=== PATIENT | female | born 1935 | race Caucasian/White ===

== ENCOUNTER 2022-12-25 04:07 | Emergency (ER) | payer MEDICARE, SELFPAY ==
[2022-12-25 04:19] VITALS: BP 147/85; PULSE 49; RESP 16; TEMP 36.9; O2SAT 98
--- NOTE | 2022-12-25 04:28 | ED.GENADUL1 ---
HPI - General Adult General Chief complaint: Urogenital-Female Stated complaint: STOMACH PAIN Time Seen by Provider: 12/25/22 04:28 Source: family Mode of arrival: walk-in Limitations: altered mental status History of Present Illness HPI narrative: Patient brought in by spouse with a complaint of hematuria. States the patient's been having urinary frequency and some hematuria. states patient has a history of dementia she's been more aggressive, Angry, and Not be sleeping. Patient states nothing hurts. Denies any trauma. He has no previous history of hematuria. She does not take any blood thinners. Patient has not had any fever, upper respiratory infection symptoms, or cough. She has not had any Nausea,vomiting,. spouse states the patient gets up in the middle of the night 3-4 times and doesn't know she is waiting too long before she goes but sometimes she is not making a to the bathroom and she soils the floor. Spouse also states she started having diarrhea.He also states that in the last 2 weeks they lowered her Seroquel and since then she's been having more angry spells.The patient sees the neurologist and been involved as an outpatient. Related Data Home Medications Medication Instructions Recorded Confirmed levothyroxine 75 mcg tablet mcg 12/25/22 metoprolol succinate 25 mg mg PO 12/25/22 tablet,extended release 24 hr quetiapine 50 mg tablet mg 12/25/22 Previous Rx's Medication Instructions Recorded metronidazole 500 mg tablet 500 mg PO TID #30 tabs 12/25/22 Allergies Allergy/AdvReac Type Severity Reaction Status Date / Time No Known Drug Allergies Allergy Verified 12/25/22 04:45 Review of Systems ROS Status of ROS 10 or more systems reviewed and unremarkable except as noted in history and below Exam Narrative Exam Narrative: Nurses notes and vital signs reviewed and patient is not hypoxic. General: Nontoxic, Well-appearing and in no apparent distress. Skin: Warm, dry, no pallor noted. No Rash Head: Normocephalic, atraumatic. Neck: Supple, non-tender. Eye: Pupils are equal, round and EOMI. No scleral icterus. Ears, Nose, Mouth, and Throat: TM clear, no posterior oropharynx erythema or nasal mucosal hypertrophy, uvula is mid-line Oral mucosa is moist Cardiovascular: Regular Rate and Rhythm without murmur, gallop or rub. Respiratory: No accessory muscle use or respiratory distress. Lungs are clear to auscultation, no wheezing, rales or rhonchi Chest Wall: no tenderness Back: No midline thoracic or lumbar vertebral tenderness. No CVA tenderness Musculoskeletal: normal ROM, no calf or popliteal tenderness, no lower extremity edema/swelling GI: Abdomen is soft, non-distended. Normal bowel sounds. No masses appreciated. moderate llq tenderness to palpation. No rebound, guarding, or rigidity noted. Neurological: A&O x2, Dementia, No cranial nerve dysfunction observed. No truncal ataxia. Moves all extremities. Ambulates without any ataxia. Psychiatric: Cooperative Constitutional Vital Signs, click to edit/add: Last Vital Signs Temp 98.5 F 12/25/22 04:19 Pulse 49 L 12/25/22 04:19 Resp 16 12/25/22 04:19 BP 147/85 H 12/25/22 04:19 Pulse Ox 98 12/25/22 04:19 O2 Del Method Room Air 12/25/22 04:19 Course Vital Signs Vital signs: Vital Signs Temperature 98.5 F 12/25/22 04:19 Pulse Rate 49 L 12/25/22 04:19 Respiratory Rate 16 12/25/22 04:19 Blood Pressure 147/85 H 12/25/22 04:19 Pulse Oximetry 98 12/25/22 04:19 Oxygen Delivery Method Room Air 12/25/22 04:19 Temperature 98.5 F 12/25/22 04:19 Pulse Rate 49 L 12/25/22 04:19 Respiratory Rate 16 12/25/22 04:19 Blood Pressure 147/85 H 12/25/22 04:19 Pulse Oximetry 98 12/25/22 04:19 Oxygen Delivery Method Room Air 12/25/22 04:19 Medical Decision Making MDM Narrative Medical decision making narrative: Patient is given 10 mg of Zyprexa by mouth. lab studies were ordered. Patient has hematuria. She started complaining of abdominal pain. She's had diarrhea while she's been in the emergency department. Patient improved with Zyprexa. Patient's mentation and aggressiveness improved with Zyprexa. She was smiling, cooperative. All results were discussed with patient and spouse. Patient will be started on Flagyl. She is to follow up with primary care doctor and neurologist to discuss this visit and Seroquel. At this time the patient is without objective evidence of an acute process requiring hospitalization or inpatient management. The patient has remained hemodynamically stable. No additional indication for emergent studies at this time. I answered all questions. Discussed discharge instructions including standard anticipatory guidance and what should prompt a return to the emergency department, including if they get worse are not getting better or develops any new or concerning symptoms. I've given them specific time frame in which to follow-up, and who to follow-up with. The patient demonstrates understanding. Patient is nontoxic and stable for discharge with outpatient follow-up. This note was created with the assistance of a speech recognition program. Although the intention is to generate documents that actually reflects the content of the visit, no guarantees can be provided that every mistake has been identified and corrected by editing. Lab Data Lab results reviewed: Yes I reviewed the patient's lab results Labs: Lab Results 12/25/22 12/25/22 Range/Units 05:18 05:57 WBC 7.6 (4.0-11.0) 10^3/uL RBC 4.00 L (4.20-5.40) 10^6/uL Hgb 12.3 (12.0-16.0) g/dL Hct 37.6 (36.0-48.0) % MCV 94.0 (81.0-99.0) fL MCH 30.8 (26.7-34.0) pg MCHC 32.7 (29.9-35.2) g/dL RDW 12.9 (11.0-15.0) % Plt Count 266 (150-450) 10^3/uL MPV 9.5 (9.5-13.5) fL Neut % (Auto) 63.7 (43.0-75.0) % Lymph % (Auto) 18.1 L (20.5-60.0) % [place] % (Auto) 11.9 (1.7-12.0) % Eos % (Auto) 3.3 (0.9-7.0) % Baso % (Auto) 1.2 (0.2-2.0) % Neut # (Auto) 4.9 (1.4-6.5) 10^3/uL Lymph # (Auto) 1.4 (1.2-3.8) 10^3/uL [place] # (Auto) 0.9 H (0.3-0.8) 10^3/uL Eos # (Auto) 0.3 (0.0-0.7) 10^3/uL Baso # (Auto) 0.1 (0.0-0.1) 10^3/uL Abs Immat Gran (auto) 0.14 H (0.00-0.03) 10^3/uL Imm/Tot Granulo (auto) 1.8 H (0.0-0.5) % Sodium 140 (136-145) mmol/L Potassium 4.1 (3.5-5.1) mmol/L Chloride 104 (98-107) mmol/L Carbon Dioxide 27.6 (21.0-32.0) mmol/L Anion Gap 12.5 BUN 9.0 (7.0-18.0) mg/dL Creatinine 0.96 (0.55-1.02) mg/dL Est GFR ( Amer) >60 (>=60) Est GFR (Non-Af Amer) 55 L (>=60) BUN/Creatinine Ratio 9.4 Glucose 128 H (74-106) mg/dL Calcium 8.3 L (8.5-10.1) mg/dL Total Bilirubin 0.4 (0.2-1.0) mg/dL AST 6 L (15-37) U/L ALT 30 (14-59) U/L Alkaline Phosphatase 80 (46-116) U/L Total Protein 6.8 (6.4-8.2) g/dL Albumin 3.1 L (3.4-5.0) g/dL Globulin 3.7 g/dL Albumin/Globulin Ratio 0.8 Urine Color Lt. yellow (YELLOW) Urine Clarity Clear (CLEAR) Urine pH 6.5 (5.0-9.0) Ur Specific [place] 1.010 (1.005-1.025) Urine Protein Negative (NEG/TRACE) mg/dL Urine Glucose (UA) Negative (NEGATIVE) mg/dL Urine Ketones Negative (NEGATIVE) mg/dL Urine Occult Blood Trace-i (NEGATIVE) Urine Nitrite Negative (NEGATIVE) Urine Bilirubin Negative (NEGATIVE) Urine Urobilinogen 1.0 (0.2-1.0) EU/dL Ur Leukocyte Esterase Negative (NEGATIVE) Discharge Plan Discharge Chief Complaint: Urogenital-Female Clinical Impression: Dementia, Acute proctitis, Diarrhea Patient Disposition: Home, Self-Care Time of Disposition Decision: 07:10 Condition: Good Mode of Transportation: Private Vehicle Prescriptions / Home Meds: New metronidazole 500 mg tablet 500 mg PO TID Qty: 30 0RF No Action levothyroxine 75 mcg tablet metoprolol succinate 25 mg tablet extended release 24 hr PO quetiapine 50 mg tablet Instructions: Proctitis (ED), Dementia (ED), Acute Diarrhea (ED) Additional Instructions: Continue the full dose of Seroquel as prescribed by your doctors. Stand Alone Forms: Portal Instructions Referrals: Homer Arnold DO [Primary Care Provider] - 1 week
[2022-12-25 05:26] LABS: Basophils Absolute Auto 0.1 10^3/uL (0.0-0.1); Basophils Percent Auto 1.2 % (0.2-2.0); Eosinophils Absolute Auto 0.3 10^3/uL (0.0-0.7); Eosinophils Percent Auto 3.3 % (0.9-7.0); Hematocrit 37.6 % (36.0-48.0); Hemoglobin 12.3 g/dL (12.0-16.0); Immature Granulocytes Abs Auto 0.14 10^3/uL (0.00-0.03); Immature Granulocytes Pct Auto 1.8 % (0.0-0.5); Lymphocytes Absolute Auto 1.4 10^3/uL (1.2-3.8); Lymphocytes Percent Auto 18.1 % (20.5-60.0); Mean Corpuscular HGB Conc 32.7 g/dL (29.9-35.2); Mean Corpuscular Hemoglobin 30.8 pg (26.7-34.0); Mean Platelet Volume 9.5 fL (9.5-13.5); Monocytes Absolute Auto 0.9 10^3/uL (0.3-0.8); Monocytes Percent Auto 11.9 % (1.7-12.0); Neutrophils Absolute Auto 4.9 10^3/uL (1.4-6.5); Neutrophils Percent Auto 63.7 % (43.0-75.0); Platelet Count 266 10^3/uL (150-450); Red Cell Distribution Width 12.9 % (11.0-15.0); White Blood Count 7.6 10^3/uL (4.0-11.0)
[2022-12-25 05:43] LABS: Alanine Aminotransferase 30 U/L (14-59); Albumin Globulin Ratio 0.8; Albumin Level 3.1 g/dL (3.4-5.0); Alkaline Phosphatase 80 U/L (46-116); Anion Gap 12.5; Aspartate Amino Transferase 6 U/L (15-37); BUN Creatinine Ratio 9.4; Bilirubin Total 0.4 mg/dL (0.2-1.0); Calcium 8.3 mg/dL (8.5-10.1); Carbon Dioxide 27.6 mmol/L (21.0-32.0); Chloride 104 mmol/L (98-107); Estimated GFR (African America >60 (>=60); Estimated GFR (Non-African Ame 55 (>=60); Globulin 3.7 g/dL; Glucose 128 mg/dL (74-106); Potassium 4.1 mmol/L (3.5-5.1); Sodium 140 mmol/L (136-145); Total Protein 6.8 g/dL (6.4-8.2)
[2022-12-25] MEDS: OLANZapine 5 MG TABLET 10 MG PO (05:59)
--- NOTE | 2022-12-25 06:06 | PC.NURSE ---
straight cath preformed using sterile technique. Patient tolerated with a few complaints of abdominal pain. UA obtained, drained 100ml from bladder.
[2022-12-25 06:08] LABS: Bilirubin Urine NEGATIVE (NEGATIVE); Blood Urine TRACE-I (NEGATIVE); Clarity Urine CLEAR (CLEAR); Color Urine LT. YELLOW (YELLOW); Glucose Urine UA NEGATIVE (NEGATIVE); Ketones Urine NEGATIVE (NEGATIVE); Leukocyte Esterase Urine NEGATIVE (NEGATIVE); Nitrite Urine NEGATIVE (NEGATIVE); Protein Urine NEGATIVE (NEG/TRACE); Urine Microscopic Indicated NO; pH Urine 6.5 (5.0-9.0)
--- NOTE | 2022-12-25 06:18 | CT_ITS ---
[address] [address] Patient Name: CON PIMENTEL MRN: [id number] date: 1935 Sex: F Assigned Patient Location: ER Current Patient Location: ED.MAIN Accession/Order Number: [id number] Exam Date: 12/25/2022 06:32 Report Date: 12/25/2022 06:53 At the request of: OLIVE AGOSTO Procedure: CT abdomen pelvis wo con EXAM: CT scan of the abdomen and pelvis without contrast. Dose reduction technique used: Automated exposure control and/or adjustment of the mA and/or kV according to patient size and/or use of iterative reconstruction technique. REASON FOR EXAM: abd pain, diarrhea COMPARISON: None FINDINGS: Rectal wall thickening with surrounding fat stranding. L2 superior endplate compression fracture with mild height loss is age indeterminate. Severe left hip degenerative change. No renal, ureteral or bladder calculi. No hydronephrosis. Negative appendix. No free fluid in the abdomen or pelvis. No free intraperitoneal air. No dilated or thickened loops of small bowel or colon. Liver, pancreas, spleen, bilateral kidneys, and bilateral adrenal glands are otherwise unremarkable within the limitations of noncontrast CT. No lymphadenopathy in the abdomen or pelvis. Remainder unremarkable. CT/CT abdomen pelvis wo con IMPRESSION: 1. Rectal wall thickening likely represents proctitis although malignancy cannot be entirely excluded. 2. Age-indeterminate L2 compression fracture. 3. Severe left hip degenerative change. Electronically authenticated by: LULY BARNHART Date: 12/25/2022 06:53
[2022-12-25] MEDS: MORPHINE SULFATE 4 MG/ML VIAL IV (06:28)
== END 2022-12-25 07:32 | disposition home or self-care (01) ==
PROVIDERS: Emergency Provider Emergency Medicine; PCP Internal Medicine
DX: K62.89 Other specified diseases of anus and rectum (principal); F03.90 Unspecified dementia, unspecified severity, without behavioral disturbance, psychotic disturbance, mood disturbance, and anxiety; R19.7 Diarrhea, unspecified; Z79.899 Other long term (current) drug therapy; Z79.890 Hormone replacement therapy
CPT/HCPCS: 36415; 74176; 80053; 81003; 85025; 96374; 99284

== ENCOUNTER 2023-01-26 12:17 | Day surgery (SDC) | payer MEDICARE, SELFPAY ==
[2023-01-26] MEDS: TRIAMCINOLONE ACETONIDE 40 MG/ML VIAL INJ (13:20)
[2023-01-26] MEDS: BUPIVACAINE HCL 0.5% PF 50 MG/10 ML VIAL 2 ML INJ (13:20)
[2023-01-26] MEDS: LIDOCAINE HCL 10 ML, SODIUM BICARBONATE 1 MEQ INJ (13:20)
--- NOTE | 2023-01-26 13:30 | FL_ITS ---
The [address] [address] Patient Name: CON PIMENTEL MRN: [id number] date: 1935 Sex: F Assigned Patient Location: MD Current Patient Location: MD Accession/Order Number: [id number] Exam Date: 01/26/2023 12:30 Report Date: 01/26/2023 13:49 At the request of: NUNO REMY Procedure: FL hip inj LT EXAMINATION: FL hip inj LT, FL guided needle placement HISTORY: Chronic Left Hip Pain COMPARISON: No relevant comparison available. TECHNIQUE: An arthrogram was performed under fluoroscopic guidance using non-ionic contrast material in the usual sterile manner after obtaining informed consent. Standard level fluoroscopic mode of operation utilized. FINDINGS: JOINT: Left hip NEEDLE: 25 gauge, 3.5 spinal needle. MEDICATION: 2 mL buffered 1% lidocaine for subcutaneous anesthesia. 2 mL Omnipaque-300 iodinated contrast to visualize the joint space. 40 mg Kenalog, 2 mL 0.5% bupivacaine, and 3 mL Omnipaque 300 injected into the joint space. TECHNIQUE: Anterior approach with prior localization of the femoral artery. A single stick was successful in gaining access to the joint space. CLINICAL: Improvement of joint pain post injection. COMPLICATIONS: None. OTHER: Negative. FL/FL hip inj LT IMPRESSION: Successful left hip injection. Electronically authenticated by: LINDSEY ZIMMERMAN Date: 01/26/2023 13:49
--- NOTE | 2023-01-26 13:30 | FL_ITS ---
[address] [address] Patient Name: CON PIMENTEL MRN: [id number] date: 1935 Sex: F Assigned Patient Location: MS Current Patient Location: MS Accession/Order Number: [id number] Exam Date: 01/26/2023 12:30 Report Date: 01/26/2023 13:49 At the request of: NUNO REMY Procedure: FL guided needle placement EXAMINATION: FL hip inj LT, FL guided needle placement HISTORY: Chronic Left Hip Pain COMPARISON: No relevant comparison available. TECHNIQUE: An arthrogram was performed under fluoroscopic guidance using non-ionic contrast material in the usual sterile manner after obtaining informed consent. Standard level fluoroscopic mode of operation utilized. FINDINGS: JOINT: Left hip NEEDLE: 25 gauge, 3.5 spinal needle. MEDICATION: 2 mL buffered 1% lidocaine for subcutaneous anesthesia. 2 mL Omnipaque-300 iodinated contrast to visualize the joint space. 40 mg Kenalog, 2 mL 0.5% bupivacaine, and 3 mL Omnipaque 300 injected into the joint space. TECHNIQUE: Anterior approach with prior localization of the femoral artery. A single stick was successful in gaining access to the joint space. CLINICAL: Improvement of joint pain post injection. COMPLICATIONS: None. OTHER: Negative. FL/FL guided needle placement IMPRESSION: Successful left hip injection. Electronically authenticated by: LINDSEY ZIMMERMAN Date: 01/26/2023 13:49
--- NOTE | 2023-01-26 14:05 | PC.NURSE ---
1235 Pt spouse present with her for all instructions.
== END 2023-01-26 13:37 | disposition home or self-care (01) ==
LOC: FL 12:18
PROVIDERS: Radiology Diagnostic Radiology; PCP Internal Medicine; Visit Provider Internal Medicine
DX: M25.552 Pain in left hip (principal); G89.29 Other chronic pain
CPT/HCPCS: 20610; 77002; Q9967